=== PATIENT | male | born 1975 | race Caucasian/White ===

== ENCOUNTER 2020-02-28 15:29 | Emergency (ER) | payer BC ==
[~2020-02-28] VITALS: Ht 185.4 cm; Wt 104.5 kg
[2020-02-28] MEDS ORDERED: CARV6.25 PO (15:40)
[2020-02-28] MEDS ORDERED: LIDOCAINE 1% MDV 20ML VIAL SC ONE (16:15)
[2020-02-28 17:00] VITALS: BP 129/81
== END 2020-02-28 17:02 | disposition home or self-care (01) ==
LOC: M ED 15:29
DX: S01.21XA Laceration without foreign body of nose, initial encounter (principal); W22.8XXA Striking against or struck by other objects, initial encounter; Y92.099 Unspecified place in other non-institutional residence as the place of occurrence of the external cause; Y93.89 Activity, other specified; Y99.9 Unspecified external cause status

== ENCOUNTER → 2020-04-18 | Outpatient (REF) | payer BC ==
[~2020-04-18] MED LIST: CARV6.25 PO
== END ==
LOC: M LAB REF 12:21
PROVIDERS: ATTEND Nurse Practitioner Adult Health
DX: Z01.84 Encounter for antibody response examination (principal)

== ENCOUNTER → 2020-08-01 | Outpatient (REF) | payer BC ==
[2020-08-01 15:55] LABS: FOLATE 5.3 NG/ML
== END ==
LOC: M LAB REF 11:30
PROVIDERS: ATTEND Nurse Practitioner Adult Health
DX: R20.3 Hyperesthesia (principal); G60.9 Hereditary and idiopathic neuropathy, unspecified

== ENCOUNTER → 2020-08-19 | Outpatient (CLI) | payer BC ==
[~2020-08-19] MED LIST changes: +ISOVUE-370 76% 100ML VIAL As Ordered ONE
--- NOTE | 2020-08-19 11:26 | REP ---
INDICATION: RADICULOPATHY, EVAL HERNIATION. COMPARISON: Comparison lumbar spine radiographs December 03, 2015.. TECHNIQUE: Helical scanning is acquired following the intravenous injection of 100 mL of Isovue 370. 4 mm axial images re-formatted. Coronal and sagittal MPR images are provided. FINDINGS: Lumbar vertebral body heights are preserved. Alignment is normal. No bony destructive lesion is seen. Digital veterans' coordinator radiograph demonstrates a multilead pacemaker. There is no evidence of spondylolysis or spondylolisthesis. No extra-spinal abnormality is observed. No perispinal or intraspinal fluid collection or mass effect is appreciated. The L5-S1 disc level shows minimal facet hypertrophy. Axial and sagittal images at L4-5 demonstrate mild diffuse disc bulging. There is minimal facet hypertrophy. No disc protrusion or neural foraminal narrowing is appreciated. At L3-4 and L2-3 and L1-2, there is no significant disc protrusion, spinal stenosis, or foraminal lesion. IMPRESSION: Mild diffuse disc bulging at L4-5. Mild facet hypertrophy at 4 5 and 5 1. Otherwise negative. <Electronically signed by David Mcgovern > 08/19/20 [id number]
== END ==
LOC: M RAD 10:25
PROVIDERS: ATTEND Physician Assistant
DX: M51.16 Intervertebral disc disorders with radiculopathy, lumbar region (principal)
CPT/HCPCS: 72132; Q9967

== ENCOUNTER → 2020-08-22 | Outpatient (CLI) | payer BC ==
[~2020-08-22] MED LIST changes: -ISOVUE-370 76% 100ML VIAL As Ordered ONE
[2020-08-22 17:56] LABS: FREE T4 1.02 NG/DL (0.76-1.46); RHEUMATOID FACTOR QUANT < 10.0 IU/ML (<15.0); TOTAL PROTEIN 7.3 GM/DL (6.4-8.2)
[2020-08-22 18:55] LABS: HEMOGLOBIN A1c 4.7 %
[2020-08-23 12:51] LABS: DRVV SCREEN 45.1 SEC; PTT LUPUS TYPE ANTICOAG SCREEN 1.1 (0-1.2)
[2020-08-24 13:07] LABS: ANTINUCLEAR ANTIBODIES DIRECT Negative (Negative)
[2020-08-26 13:52] LABS: ALBUMIN 4.65 GM/DL (3.29-5.55); ALBUMIN % 63.7 % (55.8-66.1); ALPHA-1-GLOBULIN % 3.5 % (2.9-4.9); ALPHA-1-GLOBULINS 0.26 GM/DL (0.17-0.41); ALPHA-2-GLOBULINS 0.39 GM/DL (0.42-0.99); ALPHA-2-GLOBULINS % 5.4 % (7.1-11.8); BETA-1-GLOBULINS 0.39 GM/DL (0.28-0.60); BETA-1-GLOBULINS % 5.4 % (4.7-7.2); BETA-2-GLOBULINS 0.27 GM/DL (0.19-0.55); BETA-2-GLOBULINS % 3.7 % (3.2-6.5); GAMMA GLOBULIN % 18.3 % (11.1-18.8); GAMMA GLOBULINS 1.34 GM/DL (0.65-1.58)
== END ==
LOC: M PLALAB 15:45
PROVIDERS: ATTEND Psychiatry & Neurology Neurology
DX: M54.5 Low back pain (principal); G62.9 Polyneuropathy, unspecified

== ENCOUNTER → 2020-09-03 | Outpatient (CLI) | payer BC ==
--- NOTE | 2020-09-03 18:27 | REPVR ---
PROCEDURE INFORMATION: Exam: CT Head Without Contrast Exam date and time: 09/03/2020 5:33 PM Age: 45 years old Clinical indication: Dizziness; Additional info: Muscle spasm of back TECHNIQUE: Imaging protocol: Computed tomography of the head without contrast. Radiation optimization: All CT scans at this facility use at least one of these dose optimization techniques: automated exposure control; mA and/or kV adjustment per patient size (includes targeted exams where dose is matched to clinical indication); or iterative reconstruction. COMPARISON: No relevant prior studies available. FINDINGS: Brain: Chivo cisterna magna. There are mild periventricular and subcortical lucencies consistent with chronic microvascular ischemic changes. The nevarez-white differentiation is maintained. No hemorrhage. No edema. Cerebral ventricles: No ventriculomegaly. Bones/joints: Unremarkable. No acute fracture. Paranasal sinuses: Visualized sinuses are unremarkable. No fluid levels. Mastoid air cells: Visualized mastoid air cells are well aerated. Soft tissues: Unremarkable. IMPRESSION: No acute intracranial abnormality. Chronic microvascular ischemic changes. Electronically signed by: Nikhil Hernadez On 09/03/2020 18:26:43 PM
--- NOTE | 2020-09-03 18:31 | REPVR ---
PROCEDURE INFORMATION: Exam: CT Cervical Spine Without Contrast Exam date and time: 09/03/2020 5:33 PM Age: 45 years old Clinical indication: Other: Muscle spasm of back TECHNIQUE: Imaging protocol: Computed tomography images of the cervical spine without contrast. Radiation optimization: All CT scans at this facility use at least one of these dose optimization techniques: automated exposure control; mA and/or kV adjustment per patient size (includes targeted exams where dose is matched to clinical indication); or iterative reconstruction. COMPARISON: No relevant prior studies available. FINDINGS: Bones/joints: No acute fracture. Normal alignment. Discs/Spinal canal/Neural foramina: No significant disc protrusion. No severe spinal canal stenosis. No significant neural foraminal narrowing. Lungs: Lung apices are normal. Soft tissues: Unremarkable. IMPRESSION: No acute findings. Electronically signed by: Nikhil Hernadez On 09/03/2020 18:31:12 PM
== END ==
LOC: M RAD 16:57
PROVIDERS: ATTEND Psychiatry & Neurology Neurology
DX: R20.2 Paresthesia of skin (principal); M54.2 Cervicalgia

== ENCOUNTER 2020-09-06 10:56 | Outpatient (CLI) | payer BC ==
[~2020-09-06] VITALS: Ht 185.4 cm; Wt 94.5 kg
[2020-09-06] MEDS ORDERED: methylPREDNISolone 1,000 MG, VIAL MATE ADAPTER 1 EACH in NS 250 ML IV ONE (11:00)
[2020-09-06 11:08] VITALS: BP 141/83
[2020-09-06 12:05] VITALS: BP 118/75
[2020-09-06 12:30] VITALS: BP 121/71
== END 2020-09-06 12:30 | disposition home or self-care (01) ==
LOC: M INFU 10:56
PROVIDERS: ATTEND Psychiatry & Neurology Neurology
DX: G37.9 Demyelinating disease of central nervous system, unspecified (principal)
CPT/HCPCS: 96365; J2930

== ENCOUNTER 2020-09-07 09:06 | Outpatient (CLI) | payer BC ==
[~2020-09-07] VITALS: Ht 185.4 cm; Wt 94.5 kg
[2020-09-07 09:15] VITALS: BP 113/67
[2020-09-07] MEDS ORDERED: methylPREDNISolone 1,000 MG, VIAL MATE ADAPTER 1 EACH in NS 250 ML IV ONE (10:00)
[2020-09-07 11:37] VITALS: BP 113/68
== END 2020-09-07 11:37 | disposition home or self-care (01) ==
LOC: M OPCLI4PR 09:06 → M MSPAV 09:09 → M OPCLI4PR 11:37
PROVIDERS: ATTEND Psychiatry & Neurology Neurology
DX: G37.9 Demyelinating disease of central nervous system, unspecified (principal)
CPT/HCPCS: 96365; J2930

== ENCOUNTER 2020-09-08 08:37 | Outpatient (CLI) | payer BC ==
[~2020-09-08] VITALS: Ht 185.4 cm; Wt 94.5 kg
[2020-09-08 08:58] VITALS: BP 105/74
[2020-09-08] MEDS ORDERED: methylPREDNISolone 1,000 MG, VIAL MATE ADAPTER 1 EACH in NS 250 ML IV ONE (09:15)
[2020-09-08 11:00] VITALS: BP 124/78
== END 2020-09-08 11:08 | disposition home or self-care (01) ==
LOC: M OPCLI4PR 08:37 → M MSPAV 08:39 → M OPCLI4PR 11:08
PROVIDERS: ATTEND Psychiatry & Neurology Neurology
DX: G37.9 Demyelinating disease of central nervous system, unspecified (principal)
CPT/HCPCS: 96365; J2930

== ENCOUNTER 2020-09-09 10:59 | Outpatient (CLI) | payer BC ==
[~2020-09-09] VITALS: Ht 185.4 cm; Wt 94.5 kg
[~2020-09-09 10:59] MED LIST changes: +methylPREDNISolone 1,000 MG, VIAL MATE ADAPTER 1 EACH in NS 250 ML IV ONE
[2020-09-09 11:00] VITALS: BP 101/57
[2020-09-09 12:45] VITALS: BP 144/67
== END 2020-09-09 12:45 | disposition home or self-care (01) ==
LOC: M INFU 10:59
PROVIDERS: ATTEND Psychiatry & Neurology Neurology
DX: G37.9 Demyelinating disease of central nervous system, unspecified (principal)
CPT/HCPCS: 96365; J2930

== ENCOUNTER 2020-09-10 10:04 | Outpatient (CLI) | payer BC ==
[~2020-09-10] VITALS: Ht 185.4 cm; Wt 94.5 kg
[2020-09-10 10:15] VITALS: BP 128/53
[2020-09-10 11:44] VITALS: BP 131/86
== END 2020-09-10 11:40 | disposition home or self-care (01) ==
LOC: M INFU 10:04
PROVIDERS: ATTEND Psychiatry & Neurology Neurology
DX: G37.9 Demyelinating disease of central nervous system, unspecified (principal)
CPT/HCPCS: 96365; J2930

== ENCOUNTER 2021-05-20 16:34 | Outpatient (CLI) | payer BC ==
[~2021-05-20] VITALS: Ht 185.4 cm; Wt 102.3 kg
[~2021-05-20 16:34] MED LIST changes: -methylPREDNISolone 1,000 MG, VIAL MATE ADAPTER 1 EACH in NS 250 ML IV ONE
[2021-05-20] MEDS ORDERED: methylPREDNISolone 1,000 MG, VIAL MATE ADAPTER 1 EACH in NS 250 ML IV ONE (16:50)
[2021-05-20 16:57] VITALS: BP 126/75
[2021-05-20 17:58] VITALS: BP 132/79
== END 2021-05-20 17:58 | disposition home or self-care (01) ==
LOC: M INFU 16:34
PROVIDERS: ATTEND Psychiatry & Neurology Neurology
DX: G35 Multiple sclerosis (principal)
CPT/HCPCS: 96365; J2930

== ENCOUNTER 2021-05-21 16:13 | Outpatient (CLI) | payer BC ==
[~2021-05-21] VITALS: Ht 185.4 cm; Wt 94.5 kg
[2021-05-21 16:15] VITALS: BP 126/72
[2021-05-21] MEDS ORDERED: methylPREDNISolone 1,000 MG, VIAL MATE ADAPTER 1 EACH in NS 250 ML IV ONE (16:30)
[2021-05-21 17:38] VITALS: BP 138/77
== END 2021-05-21 17:40 | disposition home or self-care (01) ==
LOC: M INFU 16:13
PROVIDERS: ATTEND Psychiatry & Neurology Neurology
DX: G72.9 Myopathy, unspecified (principal)
CPT/HCPCS: 96365; J2930

== ENCOUNTER 2021-05-22 16:25 | Outpatient (CLI) | payer BC ==
[~2021-05-22] VITALS: Ht 185.4 cm; Wt 94.5 kg
[2021-05-22] MEDS ORDERED: methylPREDNISolone 1,000 MG, VIAL MATE ADAPTER 1 EACH in NS 250 ML IV ONE (16:30)
[2021-05-22 16:52] VITALS: BP 118/58
[2021-05-22 17:45] VITALS: BP 144/68
== END 2021-05-22 17:45 | disposition home or self-care (01) ==
LOC: M INFU 16:25
PROVIDERS: ATTEND Psychiatry & Neurology Neurology
DX: G72.9 Myopathy, unspecified (principal)
CPT/HCPCS: 96365; J2930

== ENCOUNTER → 2021-05-22 | Outpatient (CLI) | payer BC | LOC: M PLAIMG 10:06 | PROVIDERS: ATTEND Psychiatry & Neurology Neurology | DX: G35 Multiple sclerosis (principal) ==

== ENCOUNTER 2021-05-23 16:14 | Outpatient (CLI) | payer BC ==
[~2021-05-23] VITALS: Ht 185.4 cm; Wt 94.5 kg
[2021-05-23 16:20] VITALS: BP 127/76
[2021-05-23] MEDS ORDERED: methylPREDNISolone 1,000 MG, VIAL MATE ADAPTER 1 EACH in NS 250 ML IV ONE (16:30)
[2021-05-23 17:50] VITALS: BP 128/71
== END 2021-05-23 17:50 | disposition home or self-care (01) ==
LOC: M INFU 16:14
PROVIDERS: ATTEND Psychiatry & Neurology Neurology
DX: G72.9 Myopathy, unspecified (principal)
CPT/HCPCS: 96374; J2930

== ENCOUNTER 2021-10-08 14:55 | Outpatient (CLI) | payer BC ==
[~2021-10-08] VITALS: Ht 185.4 cm; Wt 94.5 kg
[~2021-10-08 14:55] MED LIST changes: +methylPREDNISolone 1,000 MG, VIAL MATE ADAPTER 1 EACH in NS 250 ML IV ONE
[2021-10-08 15:05] VITALS: BP 126/69
[2021-10-08 16:20] VITALS: BP 121/72
== END 2021-10-08 16:20 | disposition home or self-care (01) ==
LOC: M INFU 14:55
PROVIDERS: ATTEND Psychiatry & Neurology Neurology
DX: G37.9 Demyelinating disease of central nervous system, unspecified (principal)
CPT/HCPCS: 96365; J2930

== ENCOUNTER 2021-10-09 15:05 | Outpatient (CLI) | payer BC ==
[~2021-10-09 15:05] MED LIST changes: -methylPREDNISolone 1,000 MG, VIAL MATE ADAPTER 1 EACH in NS 250 ML IV ONE
[2021-10-09 15:14] VITALS: BP 127/76
[2021-10-09] MEDS ORDERED: methylPREDNISolone 1,000 MG, VIAL MATE ADAPTER 1 EACH in NS 250 ML IV ONE (15:30)
[2021-10-09 16:30] VITALS: BP 118/68
== END 2021-10-09 16:30 | disposition home or self-care (01) ==
LOC: M INFU 15:05
PROVIDERS: ATTEND Psychiatry & Neurology Neurology
DX: G37.9 Demyelinating disease of central nervous system, unspecified (principal)
CPT/HCPCS: 96365; J2930

== ENCOUNTER 2021-10-10 15:10 | Outpatient (CLI) | payer BC ==
[~2021-10-10] VITALS: Ht 185.4 cm; Wt 94.5 kg
[2021-10-10 15:10] VITALS: BP 128/66
[~2021-10-10 15:10] MED LIST changes: +methylPREDNISolone 1,000 MG, VIAL MATE ADAPTER 1 EACH in NS 250 ML IV ONE
[2021-10-10 15:35] VITALS: BP 122/65
[2021-10-10 16:35] VITALS: BP 122/65
== END 2021-10-10 16:35 | disposition home or self-care (01) ==
LOC: M INFU 15:10
PROVIDERS: ATTEND Psychiatry & Neurology Neurology
DX: G37.9 Demyelinating disease of central nervous system, unspecified (principal)
CPT/HCPCS: 96365; J2930

== ENCOUNTER 2021-10-13 15:05 | Outpatient (CLI) | payer BC ==
[~2021-10-13] VITALS: Ht 185.4 cm; Wt 102.2 kg
[2021-10-13 15:20] VITALS: BP 122/70
[2021-10-13 16:20] VITALS: BP 111/69
== END 2021-10-13 16:20 | disposition home or self-care (01) ==
LOC: M INFU 15:05
PROVIDERS: ATTEND Psychiatry & Neurology Neurology
DX: G37.9 Demyelinating disease of central nervous system, unspecified (principal)
CPT/HCPCS: 96365; J2930

== ENCOUNTER 2021-10-14 15:05 | Outpatient (CLI) | payer BC ==
[2021-10-14 15:10] VITALS: BP 128/80
[2021-10-14 16:18] VITALS: BP 136/74
== END 2021-10-14 16:20 | disposition home or self-care (01) ==
LOC: M INFU 15:05
PROVIDERS: ATTEND Psychiatry & Neurology Neurology
DX: G37.9 Demyelinating disease of central nervous system, unspecified (principal)
CPT/HCPCS: 96365; J2930

== ENCOUNTER → 2021-11-20 | Outpatient (CLI) | payer BC ==
[~2021-11-20] MED LIST changes: -methylPREDNISolone 1,000 MG, VIAL MATE ADAPTER 1 EACH in NS 250 ML IV ONE
== END ==
LOC: M RAD 17:51
PROVIDERS: ATTEND Physician Assistant
DX: M25.531 Pain in right wrist (principal)